=== PATIENT | female | born 1955 | race Caucasian/White ===

== ENCOUNTER → 2017-04-06 | Outpatient (CLI) | payer BC | LOC: MC.RAD 15:40 | DX: Z12.31 Encounter for screening mammogram for malignant neoplasm of breast (principal) ==

== ENCOUNTER 2019-02-22 15:58 | Inpatient (IN) | payer MEDICARE, OTHER ==
[~2019-02-22] VITALS: Ht 167.6 cm; Wt 83.5 kg
[2019-02-22 16:43] VITALS: BP 117/59; PULSE 64; TEMP 99.4
--- NOTE | 2019-02-22 17:05 | NUR ---
Pt lying in bed, no complaints of pain or shortness of breath. Breathing even and unlabored, breath sounds clear. C/O of nausea and diarrhea. Completed admission assessment. Inserted 20g to RG on 1st attempt. Oriented pt to room. All questions asked and answered. Denies any other needs at this time.
[2019-02-22] MEDS ORDERED: SYNTHROID0.125 MG/T PO (17:08)
[2019-02-22] MEDS ORDERED: [UNRECOGNIZED DRUG - OTHER] (17:10)
[2019-02-22] MEDS ORDERED: CHLOR (17:10)
[2019-02-22] MEDS ORDERED: ATENOL (17:10)
[2019-02-22] MEDS ORDERED: VITAMIND3 5000 (17:12)
[2019-02-22] MEDS ORDERED: FOLIC ACID 11 MG/TA1 PO (17:14)
[2019-02-22] MEDS ORDERED: METHOTREXA2.5 MG/TAB PO (17:16)
[2019-02-22 18:15] LABS: BASO % 0.1 % (0.0-2.0); GRAN % 84.6 % (42.2-75.2); HEMATOCRIT 38.6 % (37.0-47.0); HEMOGLOBIN 13.7 g/dl (12.5-16.0); LYMPH % 10.9 % (20.0-51.0); MEAN CELL VOLUME 88 fl (80.0-100.0); MEAN CORPUSCULAR HEMOGLOBIN 31 pg (27.0-31.0); MEAN CORPUSCULAR HGB CONC 36 g/dl (33.0-37.0); MEAN PLATELET VOLUME 10.1 fl (7.4-10.4); MONO # 0.4 (0.1-0.6); MONO % 3.8 % (1.7-9.3); PLATELET COUNT 99 K/mm3 (130-400); RED BLOOD COUNT 4.38 M/mm3 (4.10-5.30); REDCELL DISTRIBUTION WIDTH-CV 12.8 % (11.5-14.5)
[2019-02-22 18:26] LABS: ALBUMIN 3.5 gm/dL (3.5-5.0); BILIRUBIN,TOTAL 0.8 mg/dL (0.0-1.0); CALCIUM 8.4 mg/dL (8.4-10.2)
[2019-02-22 18:29] LABS: POTASSIUM 2.2 mmol/L (3.4-5.0)
--- NOTE | 2019-02-22 18:32 | NUR ---
Called Olga Lidia [facility]TM[facility] with a ciritical lab of Potassium of 2.2.
--- NOTE | 2019-02-22 18:54 | NUR ---
Began K+ protocol, pt resting in bed. Pt had diarrhea and stool sample was collected. Denies any needs at this time.
[2019-02-22] MEDS ORDERED: REMICADE V100 MG/VIA IV (19:07)
--- NOTE | 2019-02-22 19:08 | NUR ---
Pt lying in bed, denies any needs at this time. Report given to Felicia RN.
[2019-02-22 19:48] VITALS: BP 116/50; PULSE 76; TEMP 98.4
--- NOTE | 2019-02-22 20:00 | NUR ---
Patient in bed, is alert and oriented x4. Has SCD's on bilateral lower legs. Has IVF infusing with IV Potassium to right forearm, no redness or swelling noted. Patient denies nausea at this time. Can have clear liquids, patient only wants ice chips at this time.
--- NOTE | 2019-02-22 20:35 | NUR ---
UA obtained at this time. Was informed of need for more stool for further testing. Placed collection hat in toilet.
[2019-02-22 20:46] LABS: COLLECTION METHOD CLEAN CATCH
[2019-02-22 21:00] VITALS: BP 116/55; PULSE 72; TEMP 98.2
[2019-02-22 21:00] LABS: HYALINE CAST >12 /lpf; MUCOUS Present /lpf; PH 5 (5-8); SQUAMOUS EPITHELIAL 0-2 /hpf; URINE APPEARANCE Hazy; URINE BACTERIA None Seen /hpf; URINE BILIRUBIN Negative (NEGATIVE); URINE BLOOD 1+ (NEGATIVE); URINE COLOR Yellow; URINE GLUCOSE Negative (NEGATIVE); URINE KETONE 1+ (NEGATIVE); URINE LEUKOCYTE ESTERASE Trace (NEGATIVE); URINE NITRATE Negative (NEGATIVE); URINE PROTEIN(semi-quant) 1+ (NEGATIVE); URINE RBC 0-2 /hpf; URINE UROBILINOGEN Negative (NEGATIVE)
--- NOTE | 2019-02-22 21:30 | NUR ---
Medicated with IV Zofran and Tylenol 650mg po for headache. Has provided more stool for testing, sent to lab. Potassium replacement continues. Is on telemetry showing SR.
--- NOTE | 2019-02-22 22:15 | NUR ---
Rocephin 2GM IV given at this time as ordered. Patient resting well. Has small bump/insect bite to left forearm. patient denies itching or pain.
[2019-02-22 23:48] VITALS: BP 99/47; PULSE 64; TEMP 99
[2019-02-23] VITALS (8 sets, daily range): BP systolic 104–135; BP diastolic 35–49; PULSE 69–81; TEMP 98.9–103.2
--- NOTE | 2019-02-23 01:00 | NUR ---
Patient resting well. No further complaints of headache.
--- NOTE | 2019-02-23 04:30 | NUR ---
Patient incontinent of small yellow watery stool. Angeline care provided. Medicated with Tylenol 650mg po at this time for feeling of achiness and temp. 100.6, last bag of Potassium hung.
--- NOTE | 2019-02-23 06:00 | NUR ---
IVF continue at 150cc/hr. No loose stools at this time, reports achiness has resolved.
[2019-02-23 06:05] LABS: BASO % 0.2 % (0.0-2.0); GRAN # 5.1 (1.4-6.5); HEMATOCRIT 35.2 % (37.0-47.0); HEMOGLOBIN 12.2 g/dl (12.5-16.0); LYMPH # 0.3 (1.2-3.4); LYMPH % 5.9 % (20.0-51.0); MEAN CELL VOLUME 89 fl (80.0-100.0); MEAN CORPUSCULAR HEMOGLOBIN 31 pg (27.0-31.0); MEAN CORPUSCULAR HGB CONC 35 g/dl (33.0-37.0); MONO # 0.3 (0.1-0.6); MONO % 4.5 % (1.7-9.3); PLATELET COUNT 79 K/mm3 (130-400); RED BLOOD COUNT 3.94 M/mm3 (4.10-5.30)
[2019-02-23 06:16] LABS: CALCIUM 7.7 mg/dL (8.4-10.2); CREATININE, serum 0.91 (0.52-1.25); POTASSIUM 3.1 mmol/L (3.4-5.0)
--- NOTE | 2019-02-23 08:00 | NUR ---
PATIENT IS RESTING IN BED THIS MORNING. PATIENT IS A&OX4. VSS. BOWEL SOUNDS ACTIVE ALL FOUR QUADRANTS. PATIENT TOLERATING SIPS AND CHIPS WITH SOME NAUSEA, PATIENT DENIES ANY COMPLAINTS OF VOMITING THIS MORNING. PATIENT STATES THAT SHE FEELS VERY WEAK. REDDENED SCABBED BUG BITE TO LEFT FOREARM NOTED. IV FLUIDS INFUING TO RIGHT FOREARM IV VIA PUMP. CALL LIGHT WITHIN REACH. PATIENT DENIES ANY OTHER NEEDS AT THIS TIME.
--- NOTE | 2019-02-23 09:34 | NUR ---
KARRI attended clinical rounds. [facility] Gibson's PCP is Dr Mary Briones and she obtains prescriptions from [facility]. There is no reported DME or home health. Patient plans to return home when discharged. KARRI does not anticipate any discharge needs.
--- NOTE | 2019-02-23 10:09 | NUR ---
PATIENT GIVEN A NOW DOSE OF IMMODIUM 4MG PER ORDERS FOR LIQUID STOOL. WILL CONTINUE TO MONITOR.
--- NOTE | 2019-02-23 11:18 | NUR ---
Initial visit; Patient thanked Scissors Grinder for looking in on her and offering God's blessings.
--- NOTE | 2019-02-23 12:18 | NUR ---
CLIENT SERVER PROGRAMMER REPORTED A TEMPURATURE OF 101.5 TO THIS NURSE. PATIENT'S BODY FLUSHED UPON ENTRY INTO ROOM. PATIENT GIVEN PRN DOSE OF TYLENOL 650 MG PO, AND A COLD CLOTH APPLIED TO PATIENT'S FOREHEAD. PETE RODRIGUES CALLED AND NOTIFIED. ORDER TO RE-CHECK PATIENT'S TEMPURATURE IN 30-45 MINUTES AD UPDATE PA.
--- NOTE | 2019-02-23 13:13 | NUR ---
UPON ENTRY TO PATIENT'S ROOM, SHE HAD JUST TAKEN A SIP OF ICE TEA. TEMPURATURE RE-CHECKED. RIGHT AXILLARY TEMPURATURE IS 102.8. LEFT AXILLARY TEMPURATURE 103.1. PETE RODRIGUES CALLED AND NOTIFIED. NO ORDERS GIVEN AT THIS TIME. WILL CONTINUE TO MONITOR.
[2019-02-23 14:31] LABS: CHOLESTEROL RISK RATIO 6.5
--- NOTE | 2019-02-23 15:40 | NUR ---
PATIENT REPORTED ANOTHER EPISODE OF LIQUID STOOL. PATIENT GIVEN PRN DOSE OF IMMODIUM 2MG PO.
--- NOTE | 2019-02-23 15:46 | NUR ---
PATIENT TAKEN DOWN FOR CT SCAN. WILL WAIT FOR ARRIVAL BACK TO ROOM 324.
--- NOTE | 2019-02-23 16:00 | NUR ---
PATIENT ARRIVED BACK TO ROOM [address] PATIENT SETTELED INTO ROOM.
--- NOTE | 2019-02-23 19:00 | NUR ---
REPORT GIVEN TO MOHINDER SHARP.
--- NOTE | 2019-02-23 19:30 | NUR ---
Report received. Assumed care for plant operator/shift supervisor. Assessment complete. Resting in bed watching TV. Report received that oral temp is 103.2. Tylenol 650mg given PO per dr order. Denies pain. Daniel n/v. States she feels fine except tired. Noted to have a quarter size scab to left forearm-insect bite. Voiding well. Requesting to shower. IV site wrapped. Will monitor temp.
[2019-02-24] VITALS (7 sets, daily range): BP systolic 98–118; BP diastolic 44–53; PULSE 73–88; TEMP 99.1–103.2
--- NOTE | 2019-02-24 01:20 | NUR ---
Noted to have an increase in oral temp to 101.4. Tylenol given per dr order. Will recheck in one hour.
[2019-02-24 06:26] LABS: CALCIUM 7.3 mg/dL (8.4-10.2); CREATININE, serum 1.27 (0.52-1.25); POTASSIUM 3.1 mmol/L (3.4-5.0)
[2019-02-24 06:56] LABS: HEMOGLOBIN 12.5 g/dl (12.5-16.0); MEAN CELL VOLUME 90 fl (80.0-100.0); MEAN CORPUSCULAR HEMOGLOBIN 31 pg (27.0-31.0); MEAN CORPUSCULAR HGB CONC 34 g/dl (33.0-37.0); MEAN PLATELET VOLUME 11.5 fl (7.4-10.4); PLATELET COUNT 65 K/mm3 (130-400); RED BLOOD COUNT 4.04 M/mm3 (4.10-5.30); REDCELL DISTRIBUTION WIDTH-CV 13.4 % (11.5-14.5)
[2019-02-24 07:14] LABS: HEMATOCRIT 36.5 % (37.0-47.0)
--- NOTE | 2019-02-24 07:20 | NUR ---
AIDA MALAGON CALLED AND NOTIFIED OF PATIENT'S MORNING TEMPURATURE OF 103.0. NO ORDERS GIVEN AT THIS TIME.
--- NOTE | 2019-02-24 08:00 | NUR ---
PATIENT IS DROWSY AND RESTING IN BED THIS MORNING, BUT AROUSES EASILY TO NAME. PATIENT IS A&OX4. PATIENT FEBRILE, OTHERWISE VSS. PATIENT'S SKIN FLUSHED. PATIENT STATES THAT SHE FEELS WEAK THIS MORNING. SHALLOW BREATHING NOTED. PATIENT DENIES A PRODUCTIVE COUGH OR SOB. BOWEL SOUNDS ACTIVE ALL FOUR QUADRANTS. PATIENT TOLERATING DIET WITHOUT ANY COMPLAINTS OF N/V. REDDENED SCABBED BUG BITE TO LEFT FOREARM NOTED. IV FLUIDS INFUING TO RIGHT FOREARM IV VIA PUMP. CALL LIGHT WITHIN REACH. PATIENT DENIES ANY OTHER NEEDS AT THIS TIME.
--- NOTE | 2019-02-24 08:07 | NUR ---
PATIENT'S TEMPURATURE RE-CHECKED AFTER PRN PO DOSE OF TYLENOL. TEMPURATURE CAME DOWN FROM 103 TO 102.9. CALLED TO PETE RODRIGUES. ORDERS TO HOLD POTASSIUM REPLACEMENT, NO OTHER ORDERS GIVEN AT THIS TIME.
[2019-02-24 08:48] LABS: BAND 73 % (0-10); LYMPHOCYTE 15 % (20.0-51.0); NEUTROPHILS 8 % (42.0-75.2)
[2019-02-24 08:49] LABS: HYPOCHROMIA 1+; PLATELET ESTIMATE DECREASED (NORMAL)
--- NOTE | 2019-02-24 14:15 | NUR ---
DR. POOL CALLED AND NOTIFIED OF ID CONSULT FOR FEVERS AND WBC COUNT DROPPING. NO ORDERS GIVEN AT THIS TIME.
--- NOTE | 2019-02-24 19:00 | NUR ---
PATIENT'S FEVERS TREATED THROUGHOUT THE SHIFT WITH PO TYLENOL 650 MG Q6H. PATIENT GIVEN IMMODIUM NEEDED AFTER LIQUID STOOLS. PATIENT DENIES PAIN THROUGHOUT THE SHIFT. REPORT GIVEN TO MOHINDER VELEZ.
--- NOTE | 2019-02-24 20:15 | NUR ---
Patient has fever 103.2 orally, medicated with Tylenol 650mg po and Immodium 2mg capsule for loose stool.
--- NOTE | 2019-02-24 20:30 | NUR ---
Patient ambulates in hallway with spouse. Gait steady.
--- NOTE | 2019-02-24 23:30 | NUR ---
Patient has another loose stool. Imodium given. T=99.1.
[2019-02-25 04:12] VITALS: BP 107/60; PULSE 90; TEMP 102.1
[2019-02-25 06:05] VITALS: TEMP 100.2
[2019-02-25 08:08] LABS: HEMOGLOBIN 11.8 g/dl (12.5-16.0); MEAN CELL VOLUME 90 fl (80.0-100.0); MEAN CORPUSCULAR HEMOGLOBIN 31 pg (27.0-31.0); MEAN CORPUSCULAR HGB CONC 34 g/dl (33.0-37.0); MEAN PLATELET VOLUME 12.2 fl (7.4-10.4); PLATELET COUNT 50 K/mm3 (130-400); RED BLOOD COUNT 3.86 M/mm3 (4.10-5.30); REDCELL DISTRIBUTION WIDTH-CV 14.1 % (11.5-14.5)
[2019-02-25 08:09] VITALS: BP 106/75; PULSE 83; TEMP 98.4
[2019-02-25 08:17] LABS: CALCIUM 6.9 mg/dL (8.4-10.2); CREATININE, serum 2.5 (0.52-1.25); HEMATOCRIT 34.6 % (37.0-47.0); POTASSIUM 3.7 mmol/L (3.4-5.0)
--- NOTE | 2019-02-25 11:01 | NUR ---
PT IS RESTING IN BED. NO PAIN. SOME SOB. CRITICAL LAB CALLED TO DR CARDENAS AWAITING HIS CALL. FLAGYL PO GIVEN WITH APPLESAUCE. ENCOURAGED APPLESAUCE TO SOOTHE HER THROAT. IVF NS WITH 40 MEQ RUNNING AT 150 CC/HR. PT HAS HAD 3-4 DIARRHEA STOOLS, STOOLS ARE DARK BROWNISH WITH SLIMY CLUMPS OF STUFF, WITH WATERY SLIME. BOTTOM IS REDDISH AND SORE. CALL LIGHT.
[2019-02-25 11:47] VITALS: BP 107/59; PULSE 81; TEMP 98.5
[2019-02-25 11:55] LABS: BAND 4 % (0-10); LYMPHOCYTE 15 % (20.0-51.0); NEUTROPHILS 79 % (42.0-75.2)
--- NOTE | 2019-02-25 12:47 | NUR ---
PINEDO PLACED WITH 20 CC YELLOW URINE COLLECTED AND SENT TO LAB. SODIUM BICARB PO GIVEN ALONG WITH IV SOLUMEDROL 50 MG. PT HAD ANOTHER STOOL LIUID WITH CLUMPS IN STOOL. DARK BROWN NO BLOOD NOTEDIN STOOL.
[2019-02-25 12:53] LABS: COLLECTION METHOD CATHETER
[2019-02-25 13:06] LABS: BUDDING YEAST Present /hpf; MUCOUS Present /lpf; PH 5 (5-8); SQUAMOUS EPITHELIAL None Seen /hpf; URINE APPEARANCE Cloudy; URINE BACTERIA None Seen /hpf; URINE BILIRUBIN Negative (NEGATIVE); URINE BLOOD 3+ (NEGATIVE); URINE COLOR Yellow; URINE GLUCOSE Negative (NEGATIVE); URINE KETONE Negative (NEGATIVE); URINE LEUKOCYTE ESTERASE Negative (NEGATIVE); URINE NITRATE Negative (NEGATIVE); URINE PROTEIN(semi-quant) 1+ (NEGATIVE); URINE UROBILINOGEN Negative (NEGATIVE)
[2019-02-25 15:50] VITALS: BP 107/59; PULSE 81; TEMP 98.5
[2019-02-25 16:21] VITALS: BP 114/65; PULSE 78; TEMP 97.9
--- NOTE | 2019-02-25 16:53 | NUR ---
Assumed care of patient from MOHINDER Menchaca around 1400. Patient slept during minimal time under this hand sign writer's care. Patient transferred to [facility] for further care and evaluation. Patient transferred via EMS. All orders and paperwork sent with EMS personnel. Report given to Laura at [facility].
== END 2019-02-25 16:55 | disposition short-term general hospital (02) | DRG 392 ==
LOC: SURG 15:58
PROVIDERS: Internal Medicine; Physician Assistant; ADMIT Family Medicine
DX: A08.4 Viral intestinal infection, unspecified (principal); N39.0 Urinary tract infection, site not specified; I10 Essential (primary) hypertension; E78.5 Hyperlipidemia, unspecified; E03.9 Hypothyroidism, unspecified; M06.9 Rheumatoid arthritis, unspecified; Z88.8 Allergy status to other drugs, medicaments and biological substances; E87.6 Hypokalemia; I95.9 Hypotension, unspecified; S50.911A Unspecified superficial injury of right forearm, initial encounter
CPT/HCPCS: OP; 99222-AI; 99233-AI; 99239; J0696; J1650; J1720; J2405; J2543; J3480; J7030; J7050; Q9967

== ENCOUNTER → 2019-04-14 | Outpatient (CLI) | payer MEDICARE, OTHER ==
[~2019-04-14] MED LIST: ATENOL; CHLOR; FOLIC ACID 11 MG/TA1 PO; METHOTREXA2.5 MG/TAB PO; REMICADE V100 MG/VIA IV; SYNTHROID0.125 MG/T PO; VITAMIND3 5000; [UNRECOGNIZED DRUG - OTHER]
== END ==
LOC: MC.RAD 03-14 09:00
DX: Z12.31 Encounter for screening mammogram for malignant neoplasm of breast (principal)